=== PATIENT | female | born 1940 | race Caucasian/White ===

== ENCOUNTER → 2016-09-23 | Day surgery (SDC) | payer MEDICARE ==
[~2016-09-23] VITALS: Ht 149.9 cm; Wt 88.5 kg
[~2016-09-23] MED LIST: ANTIVERT25 MG PO; ASCORBIC ACID500 MG PO; ASPIRIN EC81 MG PO; ASPIRIN LO-DOSE81 MG PO; ATENOLOL25 MG PO; CALCIUM +D & M1 EACH PO; CIPRO500 MG PO; EFFEXOR XR75 MG PO; ELAVIL25 MG PO; GLUCOSA-CHOND-1 EACH PO; HYDROCODON-ACE1 EAC4 PO; KLOR-CON 1010 MEQ PO; LASIX40 MG PO; LIPITOR40 MG PO; LOTENSIN10 MG PO; MAGNESIUM-VIT1 EACH PO; MECLIZINE HCL25 MG PO; MOBIC15 MG PO; MS CONTIN 100100 MG PO; MULTIPLE VITAM1 EACH PO; NEURONTIN800 MG PO; OSCAL500 MG PO; OXYMORPHONE HCL20 MG PO; PROTONIX40 MG PO; SYSTANE BALANCE10 ML OPHTH; TYLENOL325 MG PO; ZANTAC (NON-FO150 MG PO
== END | disposition disaster alternative care site (69) ==
LOC: GPOC 09-13 15:00 → GEND 07:57
PROC: 0DB68ZX Excision of Stomach, Via Natural or Artificial Opening Endoscopic, Diagnostic (ICD-10-PCS; principal; 2016-09-23)
DX: K29.70 Gastritis, unspecified, without bleeding (principal); K25.9 Gastric ulcer, unspecified as acute or chronic, without hemorrhage or perforation; I25.10 Atherosclerotic heart disease of native coronary artery without angina pectoris; E78.5 Hyperlipidemia, unspecified
CPT/HCPCS: J7030

== ENCOUNTER → 2017-02-23 | Outpatient (CLI) | payer MEDICARE | END | disposition disaster alternative care site (69) | LOC: GRAD 09:19 | DX: R22.43 Localized swelling, mass and lump, lower limb, bilateral (principal) ==